=== PATIENT | male | born 1955 | race Hispanic/Latino ===

== ENCOUNTER → 2024-05-09 | Day surgery (SDC) | payer OTHER ==
[2024-05-02 12:25] LABS: BASOPHILS % 0.6 % (0.0-1.0); HEMATOCRIT 38.9 % (38.2-49.6); HEMOGLOBIN 13.3 g/dL (14.0-18.0); LYMPHOCYTES # (AUTO) 1.8 (1.0-3.2); LYMPHOCYTES % 33.5 % (18.0-39.1); MEAN CORPUSCULAR HEMOGLOBIN 31.6 pg (28-32); MEAN CORPUSCULAR HGB CONC 34.2 g/dL (31-35); MEAN CORPUSCULAR VOLUME 92.4 fL (81-99); MONOCYTES # (AUTO) 0.5 (0.2-0.8); MONOCYTES % 9.3 % (4.4-11.3); NEUTROPHILS % 56.4 % (38.7-80.0); PLATELET COUNT 199 x10e3/uL (140-360); RED BLOOD COUNT 4.21 x10e6/uL (4.3-5.7); RED CELL DISTRIBUTION WIDTH 13.2 % (11.7-14.4); WHITE BLOOD COUNT 5.38 x10e3/uL (4.8-10.8)
[~2024-05-09] MED LIST: AMLODIPINE-VAL1 EAC2 PO; AMLODIPINE-VAL1 EAC3; B COMPLEX1 EACH PO; DOXAZOSIN MESYLA2 MG PO; FAMOTIDINE20 MG PO; LIDOCAINE HCL 2% LOCAL INJ 5 ML SDV VIAL INJ ONE; MEMANTINE HCL5 MG PO; PROPOFOL IV EMULSION 10 MG/ML 20 ML VIAL ONE; TADALAFIL2.5 MG PO; VITAMIN C500 MG PO
[2024-05-09] MEDS: LACTATED RINGER'S 1,000 ML ONE (09:14)
[2024-05-09 11:04] VITALS: TEMP 97.6
[2024-05-09 11:30] VITALS: BP 111/57; PULSE 68; RESP 16; O2SAT 97
== END | disposition home or self-care (01) ==
LOC: OR 08:30
PROVIDERS: ATTEND Internal Medicine Gastroenterology
DX: K29.50 Unspecified chronic gastritis without bleeding (principal); K21.00 Gastro-esophageal reflux disease with esophagitis, without bleeding; K44.9 Diaphragmatic hernia without obstruction or gangrene; I10 Essential (primary) hypertension; E78.5 Hyperlipidemia, unspecified; J45.909 Unspecified asthma, uncomplicated; Z78.9 Other specified health status; Z68.26 Body mass index [BMI] 26.0-26.9, adult; Z71.3 Dietary counseling and surveillance; Z01.810 Encounter for preprocedural cardiovascular examination; Z01.812 Encounter for preprocedural laboratory examination; Z79.899 Other long term (current) drug therapy
CPT/HCPCS: 36415 ×2; 43239; 82948; 85025; 88305; 93005; J2003; J2704; J7121